=== PATIENT | female | born 1955 | race Caucasian/White ===

== ENCOUNTER → 2024-08-12 14:02 | Outpatient (BNVA) | payer OTHER, SELFPAY | PROVIDERS: PCP Internal Medicine; Visit Provider Physician Assistant Medical | DX: S93.402A Sprain of unspecified ligament of left ankle, initial encounter (principal); S92.102A Unspecified fracture of left talus, initial encounter for closed fracture; W01.0XXA Fall on same level from slipping, tripping and stumbling without subsequent striking against object, initial encounter | CPT/HCPCS: 99203 ==